=== PATIENT | female | born 1995 | race African-American/Black ===

== ENCOUNTER 2019-04-17 21:30 | Emergency (ER) | payer MEDICAID ==
[~2019-04-17] VITALS: Ht 175.3 cm; Wt 83.2 kg
[2019-04-17 21:38] VITALS: Ht 175.3 cm; Wt 83.2 kg
[2019-04-17 22:41] LABS: APPEARANCE CLOUDY (CLEAR); BILIRUBIN NEGATIVE (NEGATIVE); COLOR YELLOW (YELLOW); GLUCOSE NEGATIVE (NEGATIVE); KETONE MODERATE mg/dL (NEGATIVE); NITRITE NEGATIVE (NEGATIVE); PROTEIN NEGATIVE (NEGATIVE); UROBILINOGEN NORMAL (NORMAL)
[2019-04-17 22:44] LABS: BACTERIA MODERATE /hpf (NONE SEEN); RED CELLS - URINE 0-5 /hpf (0-5); WHITE CELLS - URINE 0-5 /hpf (0-5)
[2019-04-17 22:45] LABS: AMORPHOUS SEDIMENT <1+ /lpf (NONE SEEN)
[2019-04-17 22:48] LABS: UDS - AMPHET NEGATIVE QUAL (NEGATIVE); UDS - BARB NEGATIVE QUAL (NEGATIVE); UDS - BENZO NEGATIVE QUAL (NEGATIVE); UDS - COCAINE POSITIVE QUAL (NEGATIVE); UDS - OPIATE NEGATIVE QUAL (NEGATIVE); UDS - PCP NEGATIVE QUAL (NEGATIVE); UDS - THC POSITIVE QUAL (NEGATIVE)
[2019-04-17 22:50] LABS: BASOPHILS 0.1 % (0-2); EOSINOPHILS 0.4 % (0-7); HEMATOCRIT 30.2 % (36.0-48.0); HEMOGLOBIN 10.4 g/dL (12-16); IMMATURE GRANULOCYTES 0.2 % (0-5); LYMPHOCYTES 6.9 % (15-50); MCH 30.4 pg (26.0-34.0); MCHC 34.4 g/dL (31.0-37.0); MCV 88.3 fL (80.0-100.0); MEAN PLATELET VOLUME 9.2 fL (7.4-10.4); MONOCYTES 4.3 % (2-11); NEUTROPHILS 88.1 % (40-80); PLATELET COUNT 310 10x3/uL (130-400); RBC 3.42 10x6/uL (4.00-5.40); RDW 13.7 % (11.5-14.5); WBC 14.7 10x3/uL (4.8-10.8)
[2019-04-17 22:54] LABS: ALBUMIN 3.1 g/dL (3.4-5.0); ALKALINE PHOSPHATASE 41 U/L (46-116); ALT (SGPT) 15 U/L (10-68); BILIRUBIN - TOTAL 0.23 mg/dL (0.2-1.3); CALC OSMOLALITY 269 mosm/kg (275-300); CALCIUM 8.8 mg/dL (8.5-10.1); CARBON DIOXIDE 25.3 mmol/L (21.0-32.0); CHLORIDE - SERUM 102 mmol/L (98-107); CREATININE - SERUM 0.5 mg/dL (0.6-1.3); GLUCOSE 79 mg/dL (74-106); POTASSIUM - SERUM 3.6 mmol/L (3.5-5.1); PROTEIN - SERUM 6.8 g/dL (6.4-8.2); SODIUM 136 mmol/L (136-145); UREA NITROGEN 10 mg/dL (7-18); eGFR NON AFRICAN AMERICAN > 90 mL/min (90-120)
[2019-04-17 23:17] LABS: HCG - QUANTITATIVE (MATERNAL) 25491 mIU/mL
[2019-04-18 00:41] VITALS: BP 126/79
== END 2019-04-18 00:53 | disposition home or self-care (01) ==
LOC: D.ER 21:30
PROVIDERS: Family Medicine
DX: O26.892 Other specified pregnancy related conditions, second trimester (principal); Z3A.16 16 weeks gestation of pregnancy; R10.31 Right lower quadrant pain

== ENCOUNTER 2019-09-10 01:43 | Outpatient (CLI) | payer MEDICAID ==
[2019-04-17 21:38] VITALS: BMI 27.0
[2019-09-10 02:28] LABS: UDS - AMPHET NEGATIVE QUAL (NEGATIVE); UDS - BARB NEGATIVE QUAL (NEGATIVE); UDS - BENZO NEGATIVE QUAL (NEGATIVE); UDS - COCAINE NEGATIVE QUAL (NEGATIVE); UDS - OPIATE NEGATIVE QUAL (NEGATIVE); UDS - PCP NEGATIVE QUAL (NEGATIVE); UDS - THC NEGATIVE QUAL (NEGATIVE)
[2019-09-10 02:33] LABS: APPEARANCE CLEAR (CLEAR); BILIRUBIN NEGATIVE (NEGATIVE); COLOR YELLOW (YELLOW); GLUCOSE NEGATIVE (NEGATIVE); KETONE NEGATIVE (NEGATIVE); NITRITE NEGATIVE (NEGATIVE); PROTEIN 1+ mg/dL (NEGATIVE)
[2019-09-10 02:35] LABS: BACTERIA MODERATE /hpf (NEGATIVE); EPITHELIAL CELLS 0-5 /hpf (0-5); RED CELLS - URINE 0-5 /hpf (0-5); WHITE CELLS - URINE 0-5 /hpf (NEGATIVE)
== END 2019-09-10 02:52 | disposition home or self-care (01) ==
LOC: D.LDO 01:43
PROVIDERS: ATTEND Obstetrics & Gynecology
DX: O26.893 Other specified pregnancy related conditions, third trimester (principal); Z3A.37 37 weeks gestation of pregnancy

== ENCOUNTER → 2019-09-12 14:04 | Outpatient (CLI) | payer MEDICAID ==
[2019-04-17 21:38] VITALS: BMI 27.0
== END | disposition home or self-care (01) ==
LOC: D.LDO 14:04
PROVIDERS: ATTEND Student in an Organized Health Care Education/Training Program
DX: Z34.93 Encounter for supervision of normal pregnancy, unspecified, third trimester (principal); Z3A.37 37 weeks gestation of pregnancy

== ENCOUNTER 2019-10-01 07:48 | Inpatient (IN) | payer MEDICAID ==
[~2019-10-01] VITALS: Ht 175.3 cm; Wt 107.0 kg
[2019-10-01 08:19] VITALS: BP 117/80; Ht 175.3 cm; Wt 107.0 kg
[2019-10-01 09:22] LABS: HEMATOCRIT 31.1 % (36.0-48.0); HEMOGLOBIN 10.2 g/dL (12-16); MCH 30.2 pg (26.0-34.0); MCHC 32.8 g/dL (31.0-37.0); MEAN PLATELET VOLUME 10.1 fL (7.4-10.4); RBC 3.38 10x6/uL (4.00-5.40); RDW 12.7 % (11.5-14.5); WBC 10.3 10x3/uL (4.8-10.8)
[2019-10-02 07:12] LABS: RAPID PLASMA REAGIN Non Reactive (Non Reactive)
--- NOTE | 2019-10-02 08:54 | NUR ---
PT FAMILY AT DESK AND STATES THAT PT CO ITCHING. ENTERED ROOM. PT LOOKING AT CELL PHONE. CO "ITCHING ALL OVER"- NO RASHES -REDNESS NOTED.
--- NOTE | 2019-10-02 11:20 | NUR ---
PT SITTING UP IN BED. HOLDS WITH MUCH WARMTH SHOWN. DENIES C/O OR NEEDS.
--- NOTE | 2019-10-02 12:02 | NUR ---
PT CALLS ON LIGHT. REQUESTS PAIN MED. MOTRIN 600 MG GIVEN PO ORDERED FOR PT C/O ABDOMINAL CRAMPING. PT INSTRUCTED ON MED. VERBALIZES UNDERSTANDING. 300 ML OF CLOUDY, YELLOW URINE NOTED IN SPECIPAN.
--- NOTE | 2019-10-02 13:01 | NUR ---
PT LYING TO LEFT SIDE IN BED. AWAKE. STATES PAIN NOW "5" ON 0-10 PAIN SCALE. STATES WILL TRY TO NAP AT THIS TIME.
[2019-10-02 14:28] VITALS: BP 119/68
--- NOTE | 2019-10-02 14:28 | NUR ---
PT LYING IN SEMI-MCQUEEN'S POSITION. AWAKE. VSS. FUNDUS FIRM AT U/2. RUBRA LOCHIA SMALLA MT. NO CLOTS NOTED. PT DENIES NEEDS OR C/O.
--- NOTE | 2019-10-02 16:00 | NUR ---
PT SITTING UP IN BED. INFANT. DENIES C/O. 400 ML OF BLOOD-TINGED URINE NOTED IN SPECIPAN.
--- NOTE | 2019-10-02 18:00 | NUR ---
THIS RN TO BEDSIDE FOR ROUNDING. PT LYING IN BED W/SIG OTHER WATCHING TV. PAIN AND NEEDS ASSESSED. PT REPORTS SHE IS STARTING TO ABD CRAMPING THAT SHE RATES 7/10. MOTRIN 600MG PO GIVEN. PT DENIES FURTHER NEEDS AT THIS TIME.
[2019-10-02 19:33] VITALS: BP 132/76
--- NOTE | 2019-10-02 19:33 | NUR ---
PT REC'D IN BED AT THIS TIME. MULTIPLE FAMILY MEMBERS AT THE BEDSIDE. NO DISTRESS NOTED. FUNDUS FIRM AND MIDLINE, U/2 WITH SMALL LOCHIA NOTED. SALINE LOCK TO THE RT HAND INTACT. SIDERAIL UP FRO PT SAFETY. CALL LIGHT IN REACH. SEE FLOWSHEET FOR FURTHER ASSESSMENT. Aparna PARSONS RN
--- NOTE | 2019-10-02 20:45 | NUR ---
pt assisted with at this time. pt given soda per request. no distress noted. harvey rodas rn
--- NOTE | 2019-10-02 21:45 | NUR ---
pt visiting with family. no needs voiced. no distress noted. harvey rodas rn
--- NOTE | 2019-10-02 22:12 | NUR ---
PT REC'D IN BED CARING FOR INFANT. NO NEEDS VOICED AT THIS TIME. Aparna PARSONS RN
--- NOTE | 2019-10-03 | NUR ---
PT REC'D IN BED ASLEEP. S/O AT THE BEDSIDE AND SUPPORTIVE. NO DISTRESS NOTED . Aparna PARSONS RN
--- NOTE | 2019-10-03 02:54 | NUR ---
LYING ON BACK WITH EYES CLOSED. RESPIRATIONS UNLABORED.
--- NOTE | 2019-10-03 03:49 | NUR ---
PT MEDICATED WITH MOTRIN FOR CRAMPING. PAIN LEVEL OF 7. WILL CONTINUE TO MONITOR. Aparna PARSONS RN
--- NOTE | 2019-10-03 04:45 | NUR ---
PT STATES THAT PAIN IS A 4 AT THIS TIME. NO OTHER NEEDS VOICED. Aparna PARSONS RN
--- NOTE | 2019-10-03 06:20 | NUR ---
PT REC'D IN BED AT THIS TIME WITH TO CHEST. DENIES ANY NEEDS AT THIS TIME. Aparna PARSONS RN
[2019-10-03 07:21] VITALS: BP 136/82
--- NOTE | 2019-10-03 07:21 | NUR ---
RECEIVED PT SITTING UP IN BED. HOLDS INFANT WITH MUCH WARMTH SHOWN. VSS. HRRR WITHOUT AUDIBLE MURMUR. BBS CLEAR. BS X 4. ABDOMEN SOFT/NON-DISTENDED. FUNDUS FIRM AT U/2. RUBRA LOCHIA SMALL AMT. NO CLOTS OR HEAVY BLEEDING PER PT STATES. NEG HOMANS' SIGN. PPP. NO EDEMA NOTED TO BLE. SL TO RIGHT HAND. SITE CLEAR. PT DENIES C/O OR NEEDS. SR UP X 2. CALL LIGHT IN REACH.
[2019-10-03 07:27] LABS: BASOPHILS 0.1 % (0-2); EOSINOPHILS 1.4 % (0-7); HEMATOCRIT 30.1 % (36.0-48.0); HEMOGLOBIN 9.8 g/dL (12-16); IMMATURE GRANULOCYTES 0.4 % (0-5); LYMPHOCYTES 24.3 % (15-50); MCH 30.2 pg (26.0-34.0); MCHC 32.6 g/dL (31.0-37.0); MCV 92.9 fL (80.0-100.0); MEAN PLATELET VOLUME 9.6 fL (7.4-10.4); MONOCYTES 7.3 % (2-11); NEUTROPHILS 66.5 % (40-80); PLATELET COUNT 246 10x3/uL (130-400); RBC 3.24 10x6/uL (4.00-5.40); RDW 12.7 % (11.5-14.5)
--- NOTE | 2019-10-03 08:11 | NUR ---
Shan Cezarnorman [birth year] S: Patient states is doing good with feedings. She fed her last around 7:00 this morning. Denies pain or problems with latching. She does get WIC in [facility]. Would like to make a WIC appointment today. Denies any questions or concerns. Verbally agrees to address any questions with nursery staff. O: Patient sitting up in bed holding , family member sleeping on sofa. Praised for . Informed patient takes time, practice, and patience in the beginning. Explained normal feeding patterns, feeding cues, benefits of skin to skin, position, and how to verify infant is latched correctly to the breast. Informed patient is normal for infant to want nurse every 2-3 hours in the day or sooner. Every infant demands are different with nursing. How long infant remains latched can vary per infant and this is normal also. Please address any questions or concerns with nursery nurse. Asked if patient gets WIC and would like to make a WIC appointment. [facility] contact [facility] and they informed patient they would call her back to schedule appointment today. Provided work cell number for questions or concerns about . A: Patient appears confident with due to no questions or concerns. P: Continue to support exclusively during hospital visit. Becca Todd, BRANDON
--- NOTE | 2019-10-03 09:00 | NUR ---
PT SITTING UP IN BED. CARING FOR INFANT. DENIES C/O OR NEEDS.
--- NOTE | 2019-10-03 10:45 | NUR ---
PT SITTING UP IN BED. VISITS WITH FAMILY. REQUESTS AND RECEIVES ICE AND SPRITE.
--- NOTE | 2019-10-03 12:30 | NUR ---
PT SITTING UP IN BED. CARING FOR INFANT. DENIES C/O OR NEEDS. AWAITING DISCHARGE PAPERWORK.
--- NOTE | 2019-10-03 12:55 | NUR ---
DR QUINN RETURNS BEEP. [facility] VIEWED LAB RESULTS. ORDER RECEIVED TO [facility].
--- NOTE | 2019-10-03 13:25 | NUR ---
DISCHARGE INSTRUCTIONS GIVEN TO PT PER Pito BROUSSARD RN. COPIES GIVEN TO PT.
--- NOTE | 2019-10-03 14:14 | NUR ---
PT SITTING UP IN BED. WAITING ON NSY DISCHARGE PAPERWORK. DENIES C/O OR NEEDS.
--- NOTE | 2019-10-03 14:45 | NUR ---
PT READY FOR DISCHARGE. DISCHARGED WITH , BOTH IN STABLE CONDITION, VIA WHEELCHAIR PER AUXILIARY STAFF TO PRIVATE VEHICLE.
== END 2019-10-03 14:45 | disposition home or self-care (01) | DRG 807 ==
LOC: D.LD 07:48
PROVIDERS: ADMIT Student in an Organized Health Care Education/Training Program; ATTEND Student in an Organized Health Care Education/Training Program
PROC: 10E0XZZ Delivery of Products of Conception, External Approach (ICD-10-PCS; principal; 2019-10-02)
PROC: 3E033VJ Introduction of Other Hormone into Peripheral Vein, Percutaneous Approach (ICD-10-PCS; 2019-10-02)
DX: O69.81X0 Labor and delivery complicated by cord around neck, without compression, not applicable or unspecified (principal); Z37.0 Single live birth; Z3A.40 40 weeks gestation of pregnancy